=== PATIENT | male | born 1965 | race Two or more races ===

== ENCOUNTER → 2017-09-08 | Outpatient (CLI) | payer BC, OTHER ==
[2017-09-08 17:10] LABS: Hematocrit 41.8 % (41.0-53.0); Mean Corpuscular Hemoglobin 30.1 pg (28.0-32.0); Mean Corpuscular Hgb Conc. 33.6 g/dL (32.0-36.0); Mean Corpuscular Volume 89.5 fL (80.0-100.0); Mean Platelet Volume 9.6 fL (6.9-10.8); Platelet Count (auto) 223 10^3/uL (140-450); Red Cell Distribution Width 13.3 % (11.8-14.3); White Blood Cell 8.4 10^3/uL (4.4-10.8)
[2017-09-09 14:12] LABS: Metamyelocytes % 0; Myelocytes % 0; Promyelocytes % 0; Reactive Lymphocytes 0
[2017-09-09 15:50] LABS: Burr Cells FEW; Platelet Estimate Adequate
[2017-09-09 15:52] LABS: Ovalocytes FEW
== END | disposition home or self-care (01) ==
LOC: Rad HDHVI 15:17
PROVIDERS: ATTEND Internal Medicine Cardiovascular Disease
DX: D64.9 Anemia, unspecified (principal)
CPT/HCPCS: 36415; 71020; 85007; 85025; 85027

== ENCOUNTER → 2018-09-25 | Outpatient (CLI) | payer BC | END | disposition home or self-care (01) | LOC: Rad HDHVI 11:42 | PROVIDERS: ATTEND Internal Medicine | DX: R07.89 Other chest pain (principal); R05 Cough | CPT/HCPCS: 71046 ==

== ENCOUNTER → 2021-11-07 | Outpatient (CLI) | payer BC | END | disposition home or self-care (01) | LOC: LAB 10:24 | PROVIDERS: ATTEND Internal Medicine | DX: M10.9 Gout, unspecified (principal); R70.0 Elevated erythrocyte sedimentation rate; M32.10 Systemic lupus erythematosus, organ or system involvement unspecified; M05.9 Rheumatoid arthritis with rheumatoid factor, unspecified | CPT/HCPCS: 36415; 84550; 85652; 86431 ==

== ENCOUNTER → 2023-06-25 | Outpatient (CLI) | payer BC ==
[2023-06-25 10:07] LABS: Basophils # (auto) 0.1 10 ^3/uL (0-0.2); Eosinophils # (auto) 0.2 10 ^3/uL (0-0.8); Eosinophils % (auto) 2.6 % (0.0-7.0); Hematocrit 40.2 % (41.0-53.0); Hemoglobin 13.6 g/dL (13.5-17.5); Lymphocytes # (auto) 1.8 10 ^3/uL (0.4-5.4); Lymphocytes % (auto) 29.2 % (10.0-50.0); Mean Corpuscular Hemoglobin 29.5 pg (28.0-32.0); Mean Corpuscular Hgb Conc. 33.7 g/dL (32.0-36.0); Mean Corpuscular Volume 87.5 fL (80.0-100.0); Monocytes # (auto) 0.3 10 ^3/uL (0-1.3); Monocytes % (auto) 5.3 % (0.0-12.0); Neutrophils # (auto) 3.8 10 ^3/uL (1.6-8.6); Neutrophils % (auto) 61.9 % (37.0-80.0); Nucleated Red Blood Cells % 0.1 %; Red Blood Cells 4.59 10^6/uL (4.5-5.90); Red Cell Distribution Width 13.3 % (11.8-14.3); White Blood Cell 6.2 10^3/uL (4.4-10.8)
[2023-06-25 10:16] LABS: Albumin 3.5 g/dL (3.4-5.0); Calcium 9.5 mg/dL (8.5-10.1); Potassium 4.4 mmol/L (3.5-5.1)
[2023-06-25 10:21] LABS: BUN/Creatinine Ratio 8.3 (10.0-20.0); Bilirubin, Direct 0.1 mg/dL (0-0.2); Bilirubin, Total 0.6 mg/dL (0.2-1.0); Total Protein 8.1 g/dL (6.4-8.2)
== END | disposition home or self-care (01) ==
LOC: LAB 09:19
PROVIDERS: ATTEND Internal Medicine Cardiovascular Disease
DX: C61 Malignant neoplasm of prostate (principal); E11.9 Type 2 diabetes mellitus without complications; D64.9 Anemia, unspecified; E55.9 Vitamin D deficiency, unspecified; D51.3 Other dietary vitamin B12 deficiency anemia; I10 Essential (primary) hypertension; R00.2 Palpitations; R53.1 Weakness; R30.0 Dysuria
CPT/HCPCS: 36415; 80048; 80061; 80076; 82306; 83036; 84153; 84403; 84443; 85025

== ENCOUNTER → 2023-07-08 | Outpatient (CLI) | payer BC | END | disposition home or self-care (01) | LOC: Rad HDHVI 09:09 | PROVIDERS: ATTEND Internal Medicine Cardiovascular Disease | DX: R06.02 Shortness of breath (principal); R07.89 Other chest pain | CPT/HCPCS: 93306 ==

== ENCOUNTER → 2024-11-10 | Outpatient (CLI) | payer BC ==
[~2024-11-10] MED LIST: IOHEXOL 350 MG/ML 100ML IJ ONE
[2024-11-10 09:35] VITALS: BP 107/72; PULSE 69; RESP 16; O2SAT 99
[2024-11-10 10:05] VITALS: BP 130/83; PULSE 62; RESP 16; O2SAT 99
--- NOTE | 2024-11-10 11:57 | DVH ---
Exam: CT CT CHEST/AB/PL W CON- IV ONLY History: CHEST AND ABD PAIN Comparison Study: None available at time of dictation. Technique: Multidetector spiral CT of the chest and abdomen was performed from lower neck to pubic sy mphysis. 100 cc Omni 300 intravenous contrast was administered during this examination. Portal venou s imaging was obtained. Axial, coronal and sagittal multiplanar reformats were performed by the tech nologist on a separate workstation. Radiation Dose : Chest/Abdomen/Pelvis: CTDIvol 20 mGy, DLP 949.87 mGy*cm. Findings: Lower neck: Normal thyroid. Lungs: No focal consolidation, pleural effusion or pneumothorax. Heart/Vascular Structures: Normal heart size. No pericardial effusion. Lymph Nodes: No adenopathy Pleura: No pleural effusion or significant pneumothorax. Liver: The liver is normal in size. No focal lesions. Normal hepatic vascular enhancement. Gallbladder and biliary Tree: Unremarkable Spleen: Unremarkable Pancreas: The pancreas is normal in appearance without focal lesions or abnormal enhancement. Adrenal Glands: Unremarkable Kidneys: Kidneys demonstrate normal symmetric enhancement without focal lesions, calculi or hydroneph rosis. Bowel: The stomach is grossly normal in appearance. Small bowel and colon are normal in caliber and d istribution. Ascites: Absent Lymphadenopathy: No mesenteric, retroperitoneal or periportal lymphadenopathy. Abdominal wall and Mesentery: Unremarkable. Vasculature: The visualized abdominal aorta is normal in size and caliber. Abdominal and pelvic vess els demonstrate normal enhancement. Musculoskeletal: Mild deformity of the left 6th and 7th ribs could represent nondisplaced fractures. IMPRESSION: 1. Mild deformity of the left lateral 6th and 7th ribs could represent nondisplaced fractures. Correl ate with site of pain. No other acute intrathoracic or abdominal finding. Clinical correlation and co ntinued follow-up is recommended. HS:Y
== END | disposition home or self-care (01) ==
LOC: Rad HDHVI 09:21
PROVIDERS: ATTEND Internal Medicine Cardiovascular Disease
DX: M95.4 Acquired deformity of chest and rib (principal); R10.9 Unspecified abdominal pain; R07.9 Chest pain, unspecified; Q44.6 Cystic disease of liver
CPT/HCPCS: 71260; 74177; G0463; Q9967

== ENCOUNTER → 2024-12-01 | Outpatient (CLI) | payer BC ==
[2024-12-01 11:07] LABS: Basophils # (auto) 0 10 ^3/uL (0-0.2); Basophils % (auto) 0.5 % (0.0-2.0); Eosinophils # (auto) 0.1 10 ^3/uL (0-0.8); Hematocrit 40.7 % (41.0-53.0); Hemoglobin 13.7 g/dL (13.5-17.5); Lymphocytes # (auto) 2.7 10 ^3/uL (0.4-5.4); Lymphocytes % (auto) 38.8 % (10.0-50.0); Mean Corpuscular Hemoglobin 29.6 pg (28.0-32.0); Mean Corpuscular Hgb Conc. 33.7 g/dL (32.0-36.0); Mean Corpuscular Volume 87.7 fL (80.0-100.0); Monocytes # (auto) 0.4 10 ^3/uL (0-1.3); Monocytes % (auto) 5.8 % (0.0-12.0); Neutrophils # (auto) 3.7 10 ^3/uL (1.6-8.6); Neutrophils % (auto) 52.9 % (37.0-80.0); Platelet Count (auto) 191 10^3/uL (140-450); Red Blood Cells 4.64 10^6/uL (4.5-5.90)
[2024-12-01 11:13] LABS: Urine Blood 1+ /uL (Negative); Urine Clarity Clear (Clear); Urine Color Light-Yellow (Yellow); Urine Protein, UAD Negative (Negative); Urine Specific Gravity 1.019 (1.001-1.035); Urine Urobilinogen Normal (Negative); Urine pH 6.5 (5.0-9.0)
[2024-12-01 11:34] LABS: Alanine Aminotransferase 25 U/L (7-40); Albumin 4.2 g/dL (3.2-4.8); Alkaline Phosphatase 67 U/L (46-116); Anion Gap 5 (5-15); Aspartate Aminotransferase 14 U/L (13-40); BUN/Creatinine Ratio 9.5 (10.0-20.0); Bilirubin, Direct 0.2 mg/dL (<0.3); Bilirubin, Total 0.8 mg/dL (0.2-1.0); Blood Urea Nitrogen 10 mg/dL (9-23); Calcium 9.9 mg/dL (8.7-10.4); Carbon Dioxide 29 mmol/L (20-31); Chloride 105 mmol/L (98-107); Glucose 96 mg/dL (74-106); HDL Cholesterol 48 mg/dL (40-59); Potassium 4.5 mmol/L (3.5-5.1); Sodium 139 mmol/L (136-145); Total Protein 7.1 g/dL (5.7-8.2)
[2024-12-01 11:37] LABS: Cholesterol 203 mg/dL (< 200); LDL Cholesterol 132 mg/dL (< 100); Triglycerides 191 mg/dL (< 150)
== END | disposition home or self-care (01) ==
LOC: LAB 10:32
PROVIDERS: ATTEND Orthopaedic Surgery
DX: C61 Malignant neoplasm of prostate (principal); E11.9 Type 2 diabetes mellitus without complications; D64.9 Anemia, unspecified; E55.9 Vitamin D deficiency, unspecified; R00.2 Palpitations
CPT/HCPCS: 36415; 80048; 80061; 80076; 81003; 83036; 83970; 84153; 84403; 84443; 85025

== ENCOUNTER → 2025-01-18 | Outpatient (CLI) | payer BC | END | disposition home or self-care (01) | LOC: LAB 10:00 | PROVIDERS: ATTEND Internal Medicine Cardiovascular Disease | DX: E83.50 Unspecified disorder of calcium metabolism (principal) | CPT/HCPCS: 36415; 82310; 82330 ==

== ENCOUNTER → 2025-04-13 | Outpatient (CLI) | payer BC | END | disposition home or self-care (01) | LOC: LAB 10:41 | PROVIDERS: ATTEND Internal Medicine Cardiovascular Disease | DX: E21.1 Secondary hyperparathyroidism, not elsewhere classified (principal) | CPT/HCPCS: 36415; 83970 ==

== ENCOUNTER 2025-11-07 13:01 | Outpatient (CLI) | payer BC ==
[2025-11-07 13:38] LABS: Hematocrit 40.2 % (41.0-53.0); Hemoglobin 13.6 g/dL (13.5-17.5); Mean Corpuscular Hemoglobin 29.8 pg (28.0-32.0); Mean Corpuscular Volume 87.8 fL (80.0-100.0); Nucleated Red Blood Cells % 0.1 %; Urine Protein, UAD Negative (Negative)
[2025-11-07 14:04] LABS: Prostate Specific Antigen 0.46 ng/mL (0.0-4.0)
[2025-11-07 14:06] LABS: Alanine Aminotransferase 14 U/L (7-40); Albumin 4.6 g/dL (3.2-4.8); Alkaline Phosphatase 71 U/L (46-116); Anion Gap 10 (5-15); BUN/Creatinine Ratio 13.1 (10.0-20.0); Bilirubin, Direct 0.3 mg/dL (<0.3); Bilirubin, Total 0.9 mg/dL (0.2-1.0); Blood Urea Nitrogen 13 mg/dL (9-23); Calcium 9.6 mg/dL (8.7-10.4); Carbon Dioxide 25 mmol/L (20-31); Chloride 105 mmol/L (98-107); Glucose 94 mg/dL (74-106); Potassium 4.0 mmol/L (3.5-5.1); Sodium 140 mmol/L (136-145); Total Protein 7.9 g/dL (5.7-8.2)
[2025-11-07 14:08] LABS: Free T4 (Free Thyroxine) 1.17 ng/dL (0.89-1.76)
== END 2025-11-07 17:00 | disposition home or self-care (01) ==
LOC: LAB 13:01
PROVIDERS: ATTEND Internal Medicine Cardiovascular Disease
DX: C61 Malignant neoplasm of prostate (principal); I10 Essential (primary) hypertension; E11.9 Type 2 diabetes mellitus without complications; E55.9 Vitamin D deficiency, unspecified; D64.9 Anemia, unspecified; D51.3 Other dietary vitamin B12 deficiency anemia; R00.2 Palpitations; R53.1 Weakness; R30.0 Dysuria
CPT/HCPCS: 36415; 80053; 80076; 81003; 83036; 84153; 84403; 84439; 84443; 85025